=== PATIENT | female | born 1970 | race African-American/Black ===

== ENCOUNTER 2018-03-23 05:57 | Emergency (ER) | payer OTHER ==
[2018-03-23 06:20] VITALS: BMI 40.7
[2018-03-23 06:50] LABS: BASO % 0.4 % (0-2.0); EOS % 2.2 % (0-4.5); HEMATOCRIT 35.3 % (32.4-45.2); HEMOGLOBIN 10.9 GM/dL (10.7-15.3); LYMPH % 55.7 % (8-40); MCH 22.3 pg (25.7-33.7); MCHC 30.9 g/dl (32.0-36.0); MEAN CELL VOLUME 72.2 fl (80-96); MEAN PLT VOLUME 7.8 fl (7.5-11.1); MONO % 9.2 % (3.8-10.2); NEUT % 32.5 % (42.8-82.8); PLATELET COUNT 317 K/MM3 (134-434); RDW 18.8 % (11.6-15.6); WHITE BLOOD COUNT 5.1 K/mm3 (4.0-10.0)
--- NOTE | 2018-03-23 06:56 | PDOC ---
History of Present Illness - General Chief Complaint: Chest Pain Stated Complaint: CHEST PRESSURE Time Seen by Provider: 03/23/18 06:56 - History of Present Illness Initial Comments: 03/23/18 07:22 The patient is a 47 year old female with a history of HTN, Seizures who presents for evaluation of chest tightness. 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 She notes that she has had similar symptoms in the past last of which was several months ago that had all self-resolved. She states that her symptoms have completely resolved here in the ED and she is currently asymptomatic. She states that she took a full dose aspirin prior to presenting to the ED. She otherwise denies fevers, chills, SOB , nausea, vomiting, abdominal pain, lower extremity edema, recent long travel, or changes with urination or bowel movements. Past History - Past Medical History Allergies/Adverse Reactions: Allergies Allergy/AdvReac Type Severity Reaction Status Date / Time No Known Allergies Allergy Verified 03/23/18 06:20 Home Medications: Ambulatory Orders Amlodipine Besylate [Norvasc -] 5 mg PO DAILY 03/23/18 COPD: No HTN: Yes Seizures: Yes - Reproductive History (#): 4 Para: 1 Therapeutic (s) & number: Yes (2) Spontaneous : 0 - Immunization History Td Vaccination: (unknown) Immunization Up to Date: Yes - Suicide/Smoking/Psychosocial Hx Smoking Status: No Smoking History: Never smoked Years of Tobacco Use: 0 Have you smoked in the past 12 months: No Number of Cigarettes Smoked Daily: 0 Cigars Per Day: 0 Information on smoking cessation initiated: No Hx Alcohol Use: No Drug/Substance Use Hx: No Substance Use Type: None Review of Systems - Review of Systems Comments:: 03/23/18 07:25 Constitutional: No fevers, chills, fatigue, malaise HEENT: No Rhinorrhea, nasal congestion, visual changes Cardiovascular: Lightheadedness. Chest Tightness. No syncope, palpitations, Respiratory: No Cough, SOB, Hemoptysis, Gastrointestinal: No Abdominal pain, Nausea, Vomiting, Constipation, Diarrhea, Melena Genitourinary: No Dysuria, Frequency, Urgency, Hesitancy, Hematuria, Flank pain Musculoskeletal: No Myalgia, arthralgia Skin: No rashes, itching, bruising, pallor Neurologic: No Headache, Dizziness, Numbness, Weakness, or Tingling Psychiatric: No Hallucinations. No SI or HI *Physical Exam - Vital Signs Last Vital Signs Temp Pulse Resp BP Pulse Ox 97.7 F 91 H 19 125/83 100 03/23/18 05:58 03/23/18 05:58 03/23/18 05:58 03/23/18 05:58 03/23/18 05:58 - Physical Exam Comments: 03/23/18 07:25 General Appearance: Nourished. No Apparent Distress HEENT: No Pharyngeal Erythema, Tonsillar Exudate, Tonsillar Erythema Neck: No Cervical Lymphadenopathy Respiratory/Chest: Lungs Clear, Normal Breath Sounds. No Crackles, Rales, Rhonchi, Wheezing Cardiovascular: Regular Rhythm, Regular Rate. No Murmur, Gallops, Rubs Gastrointestinal/Abdominal: Normal Bowel Sounds, Soft. No Guarding, Rebound, Tenderness Musculoskeletal: No CVA Tenderness Extremity: Normal Capillary Refill Integumentary: Normal Color, Dry, Warm Neurologic: Fully Oriented, Alert, Normal Mood/Affect, Normal Response, Moderate Sedation - Procedure Monitoring Vital Signs: Procedure Monitoring Vital Signs Temperature 97.7 F 03/23/18 05:58 Pulse Rate 91 H 03/23/18 05:58 Respiratory Rate 19 03/23/18 05:58 Blood Pressure 125/83 03/23/18 05:58 O2 Sat by Pulse Oximetry (%) 100 03/23/18 05:58 Heart Score/ECG Review - History History: Slightly suspicious - Electrocardiogram EKG: Normal - Age Age: 45-65 - Risk Factors Risk Factors Heart Score: Yes Hx Hypercholesterolemia, Yes Hx Obesity Based on the list above the patient has:: 1-2 risk factors - Troponin Troponin: </= normal limit - Score Heart Score - Total: 2 #1 ECG reviewed & interpreted by me at: 07:26 General ECG Interpretation: Sinus Rhythm, Normal Rate, Normal Intervals, No acute ischemic changes ED Treatment Course - LABORATORY CBC & Chemistry Diagram: 03/23/18 06:15 03/23/18 06:15 Medical Decision Making - Medical Decision Making 03/23/18 07:27 The patient is a 47 year old female with a history of HTN, Seizures who presents for evaluation of chest tightness. Differential includes but is not limited to: ACS, Arrhythmia, Vaso-vagal, Infectious, Metabolic Derangement. Given the patient's history and physical exam, we will obtain a cbc, cmp, troponin, ekg, chest plain film to evaluate further. We will continue to monitor and reassess while here in the ED. 03/23/18 10:53 CBC, cmp, troponin are unremarkable. Chest plain film is unremarkable as read by our radiologist. We are comfortable discharging the patient home with cardiology follow up. We discussed the results, plan, and return precautions with the patient who voiced understanding and is agreeable with the plan. *DC/Admit/Observation/Transfer Diagnosis at time of Disposition: Chest tightness or pressure, Near syncope - Discharge Dispostion Disposition: HOME Condition at time of disposition: Stable Decision to Admit order: No - Referrals Referrals: Ze Porter MD [Staff Physician] - - Patient Instructions Printed Discharge Instructions: DI for Atypical Chest Pain Additional Instructions: Please return to the ER if you experience concerning or worsening symptoms including worsening difficulty breathing, weakness, or chest pain. Your lab results were normal here in the ER. Please call to schedule a follow up appointment with your primary care provider and our Drilling Field Operator within 2-3 days to discuss your ER visit and further management of your symptoms. - Post Discharge Activity
--- NOTE | 2018-03-23 07:38 | PDOC ---
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 no family or personal hx PE/DVT no cardiac risk factors compliant with CCB therapy for management of HTN. 03/23/18 08:54 - Physicial Exam PE: 03/23/18 07:38 NAD, well appearing, MMM, nl conjunctiva, anicteric; neck supple. lungs clear, RRR, abdomen soft nontender. MERRILL x4, no focal neuro deficits. No peripheral edema. normal color for ethnicity, WWP. - Medical Decision Making 03/23/18 08:56 See HPI for details DDx chest pain: ACS, PE, dissection, anxiety, acute stress reaction, esophageal spasm, GERD, gastritis, costochondritis, pneumonia, pleurisy, dehydration, electrolyte/metabolic derangements. Considered but clinically doubt based on HPI and PE: PE/dissection or DVT. no s/ s infection, doubt PNA. PERC negative so doubt PE. Vital signs reviewed, wnl. HR downtrended and normalized. NAD Prior notes reviewed, including admissions, discharges and consultations. laboratory results and imaging reviewed, basic labs and lytes wnl, neg trop x2 so doubt ACS/angina. baseline anemia, no bleeding or acute changes. stable H/H per patient when checked CXR unremarkable. no edema/infiltrate or cardiomegaly. EKG normal sinus rhythm, no interval abnormalities, narrow QRS, ST and T wave segments and morphology normal. Nonspecific T wave abnormalities HEART score low risk category, 3 - 1.6% MACE at 30days so 2 trop neg, less likely ACS ED course: uncomplicated, no acute events. stressor precipitants for vasovagal/ near syncope episode. no trauma. no sz activity. no symptoms currently. Dispo: Pt informed of my clinical impression, treatment recommendations and disposition plan. All questions answered to patient's satisfaction and expressed understanding and comfort with this. Reasons for returning to the ED sooner discussed with the patient otherwise, follow up with primary care physician. At the time of discharge, the patient is alert, clinically improved, tolerating po and verbalizes understanding of instructions. Patient does not suffer from an acute life-threatening medical condition at this time she is safe for outpatient follow-up. 03/23/18 08:58 03/23/18 08:59 03/23/18 09:00 Heart Score/ECG Review - History History: Slightly suspicious - Electrocardiogram EKG: Non specific repolarization disturbance - Age Age: 45-65 - Risk Factors Risk Factors Heart Score: Yes Hx Hypertension Based on the list above the patient has:: 1-2 risk factors - Troponin Troponin: </= normal limit - Score Heart Score - Total: 3 - ECG Impressions Normal ECG: No Comment:: 03/23/18 08:59 EKG normal sinus rhythm, no interval abnormalities, narrow QRS, ST and T wave segments and morphology normal. Nonspecific T wave abnormalities
[2018-03-23 08:40] LABS: ALBUMIN 3.6 g/dl (3.4-5.0); ALK PHOS 78 U/L (45-117); ANION GAP 8 MMOL/L (8-16); BILIRUBIN,TOTAL 0.4 mg/dL (0.2-1); BLOOD UREA NITROGEN 12 mg/dL (7-18); CALCIUM 8.7 mg/dL (8.5-10.1); CHLORIDE 103 mmol/L (98-107); CO2 26 mmol/L (21-32); CREATININE 0.9 mg/dL (0.55-1.3); GLUCOSE,RANDOM 101 mg/dL (74-106); POTASSIUM 4.6 mmol/L (3.5-5.1); SGOT/AST 37 U/L (15-37); SGPT/ALT 17 U/L (13-61); SODIUM 137 mmol/L (136-145)
--- NOTE | 2018-03-23 09:59 | EKG ---
Test Reason : Blood Pressure : / mmHG Vent. Rate : 092 BPM Atrial Rate : 092 BPM P-R Int : 130 ms QRS Dur : 084 ms QT Int : 344 ms P-R-T Axes : 000 000 -29 degrees QTc Int : 425 ms NORMAL SINUS RHYTHM LOW VOLTAGE QRS ANTEROLATERAL INFARCT , AGE UNDETERMINED ABNORMAL ECG WHEN COMPARED WITH ECG OF 15-FEB-2013 08:44, ANTEROLATERAL INFARCT IS NOW PRESENT Confirmed by Manoj Curry MD ([id number]) on 03/23/2018 9:59:00 AM Referred By: Confirmed By:Manoj Curry MD
[2018-03-23 10:31] VITALS: TEMP 98.1
[2018-03-23 11:16] VITALS: BP 130/84; PULSE 80
== END 2018-03-23 11:16 | disposition home or self-care (01) ==
LOC: JER 05:57
DX: R07.9 Chest pain, unspecified (principal); R55 Syncope and collapse; I10 Essential (primary) hypertension; G40.909 Epilepsy, unspecified, not intractable, without status epilepticus
CPT/HCPCS: 36415; 71045-TC-FY; 80053; 82550; 82553; 84484; 84703; 85025; 93005; 93010; 99285-25

== ENCOUNTER 2018-09-01 08:17 | Emergency (ER) | payer OTHER ==
[2018-09-01 08:26] VITALS: TEMP 98.2; BMI 36.5
[2018-09-01] MEDS ORDERED: amLODIPine BESYLATE 10 MG TABLET (FP) PO ONE (08:47)
[2018-09-01] MEDS ORDERED: amLODIPine BESYLATE 5 MG TABLET (FP) ONE (08:53)
[2018-09-01 08:57] LABS: BASO % 0.5 % (0-2.0); EOS % 3.7 % (0-4.5); HEMATOCRIT 32.2 % (32.4-45.2); HEMOGLOBIN 10.4 GM/dL (10.7-15.3); LYMPH % 57.1 % (8-40); MCH 22.6 pg (25.7-33.7); MCHC 32.2 g/dl (32.0-36.0); MEAN CELL VOLUME 70.1 fl (80-96); MEAN PLT VOLUME 7.2 fl (7.5-11.1); MONO % 9.4 % (3.8-10.2); NEUT % 29.3 % (42.8-82.8); PLATELET COUNT 299 K/MM3 (134-434); RDW 22.6 % (11.6-15.6); WHITE BLOOD COUNT 4.4 K/mm3 (4.0-10.0)
--- NOTE | 2018-09-01 09:09 | PDOC ---
Documentation entered by Barbara Woods SCRIBE, acting as scribe for Kale Boyle MD. Kale Boyle MD: This documentation has been prepared by the nickibe, Barbara Woods SCRIBE, under my direction and personally reviewed by me in its entirety. I confirm that the documentation accurately reflects all work, treatment, procedures, and medical decision making performed by me. History of Present Illness - General Chief Complaint: Palpitations Stated Complaint: palpitation Time Seen by Provider: 09/01/18 08:25 History Source: Patient Exam Limitations: No Limitations - History of Present Illness Initial Comments: 09/01/18 08:42 The patient is a 47-year-old female, with a past medical history of HTN, seizures, and anxiety, who presents to the ED with palpitations today. The patient states that she was driving a friend to the train station this morning when she suddenly began to experience palpitations that she describes as her "heart racing." She states experienced a similar episode in the past and was diagnosed with pericarditis. Upon arrival to the ED, the patient states that her palpitations are less intense. She denies any chest pain or shortness of breath. She denies any recent illnesses or recent travel. Denies leg swelling or calf pain. She reports taking half a xanax prior to arrival, which she believed helped. The patient has not taken her HTN medication this morning. The patient denies fevers, chills, nausea, vomiting, diarrhea, or abdominal pain. Denies any weakness, dizziness, or changes in strength or sensation. Allergies: NKA Social History: None reported. Surgical History: Hysterectomy (June 2018 at [facility]). Past History - Past Medical History Allergies/Adverse Reactions: Allergies Allergy/AdvReac Type Severity Reaction Status Date / Time No Known Allergies Allergy Verified 09/01/18 08:46 Home Medications: Ambulatory Orders Amlodipine Besylate [Norvasc -] 5 mg PO DAILY 03/23/18 Alprazolam [Xanax] 0.25 mg PO PRN 09/01/18 Anemia: No Asthma: No Cancer: No Cardiac Disorders: Yes (PERICARDITIS) CVA: No COPD: No HTN: Yes Hypercholesterolemia: Yes Seizures: Yes Other medical history: PANIC ATTACK - Surgical History Gastric Stapling: No - Reproductive History (#): 4 Para: 1 Therapeutic (s) & number: Yes (2) Spontaneous : 0 - Immunization History Td Vaccination: (unknown) Immunization Up to Date: Yes - Suicide/Smoking/Psychosocial Hx Smoking Status: No Smoking History: Never smoked Years of Tobacco Use: 0 Have you smoked in the past 12 months: No Number of Cigarettes Smoked Daily: 0 Cigars Per Day: 0 Information on smoking cessation initiated: No Hx Alcohol Use: No Drug/Substance Use Hx: No Substance Use Type: None Review of Systems - Review of Systems Able to Perform ROS?: Yes Comments:: 09/01/18 08:44 GENERAL/CONSTITUTIONAL: No fever or chills. No weakness. HEAD, EYES, EARS, NOSE AND THROAT: No change in vision. No ear pain or discharge. No sore throat. CARDIOVASCULAR: (+)Palpitations. No chest pain, no shortness of breath, no loss of consciousness RESPIRATORY: No cough, wheezing, or hemoptysis. GASTROINTESTINAL: No nausea, vomiting, diarrhea or constipation. GENITOURINARY: No dysuria, frequency, or change in urination. MUSCULOSKELETAL: No joint or muscle swelling or pain. No neck or back pain. SKIN: No rash NEUROLOGIC: No vertigo, no change in strength/sensation. ENDOCRINE: No increased thirst. No abnormal weight change. HEMATOLOGIC/LYMPHATIC: No anemia, easy bleeding, or history of blood clots. ALLERGIC/IMMUNOLOGIC: No hives or skin allergy. *Physical Exam - Vital Signs Last Vital Signs Temp Pulse Resp BP Pulse Ox 98.2 F 73 18 115/73 100 09/01/18 08:23 09/01/18 09:56 09/01/18 09:56 09/01/18 09:56 09/01/18 09:56 - Physical Exam Comments: 09/01/18 08:46 GENERAL: Awake, alert, and fully oriented, in no acute distress. HEAD: No signs of trauma EYES: PERRLA, EOMI, sclera anicteric, conjunctiva clear ENT: Auricles normal inspection, hearing grossly normal, nares patent, oropharynx clear without exudates. Moist mucosa NECK: Nontender, no stepoffs, Normal ROM, supple, no lymphadenopathy, JVD, or masses LUNGS: Breath sounds equal, clear to auscultation bilaterally. No wheezes, and no crackles HEART: Regular rate and rhythm, normal S1 and S2, no murmurs, rubs or gallops ABDOMEN: Soft, nontender, normoactive bowel sounds. No guarding, no rebound. No masses EXTREMITIES: Normal range of motion, no edema. No clubbing or cyanosis. No cords, erythema, or tenderness NEUROLOGICAL: Cranial nerves II through XII intact. 5/5 strength and sensation in all extremities, Normal speech, normal cerebellar function SKIN: Warm, Dry, normal turgor, no rashes or lesions noted. Heart Score/ECG Review - History History: Slightly suspicious - Electrocardiogram EKG: Normal - Age Age: 45-65 - Risk Factors Risk Factors Heart Score: Yes Hx Hypertension Based on the list above the patient has:: 1-2 risk factors - Troponin Troponin: </= normal limit - Score Heart Score - Total: 2 - ECG Impressions Comment:: 09/01/18 09:08 NSR, no MACARENA/STDs, no TWIs, axis wnl, intervals wnl, rate 86 ED Treatment Course - LABORATORY CBC & Chemistry Diagram: 09/01/18 08:30 09/01/18 08:30 - ADDITIONAL ORDERS Additional order review: 09/01/18 08:30 RBC 4.60 MCV 70.1 L MCHC 32.2 RDW 22.6 H MPV 7.2 L Neutrophils % 29.3 L Lymphocytes % 57.1 H Monocytes % 9.4 Eosinophils % 3.7 Basophils % 0.5 - RADIOLOGY Radiology Studies Ordered: Category Date Time Status CHEST X-RAY PORTABLE* [RAD] Stat Radiology 09/01/18 08:34 Completed - Medications Given in the ED: ED Medications Discontinued Medications Generic Name Dose Route Start Last Admin Trade Name Rhysq PRN Reason Stop Dose Admin Amlodipine Besylate 10 mg 09/01/18 08:47 09/01/18 08:54 Norvasc - PO 09/01/18 08:48 10 mg ONCE ONE Administration Medical Decision Making - Medical Decision Making 09/01/18 09:08 47 F with palpitations x 1 day. EKG normal sinus, no evidence of arrhythmia. Pt has h/o pericarditis but no CP/SOB today. No recent illness. EKG without any evidence of pericarditis. PERC 0. - Labs, trop - CXR - home dose norvasc 09/01/18 09:40 Labs notable for mild neutropenia 1.3 Pt without fevers or any other infectious symptoms. Labs otherwise unremarkable Pt reassessed - palpitations have resolved, now asymptomatic. Pt is well appearing, with normal vitals. Clinically stable for DC at this time. I discussed the physical exam findings, ancillary test results and final diagnoses with the patient. I answered all of the patient's questions. The patient was satisfied with the care received and felt comfortable with the discharge plan and treatment plan. The patient agrees to follow up with the primary care physician within 24-72 hours. *DC/Admit/Observation/Transfer Diagnosis at time of Disposition: Palpitations - Discharge Dispostion Disposition: HOME Condition at time of disposition: Stable - Referrals Referrals: Nichole Bahena [Primary Care Provider] - - Patient Instructions Printed Discharge Instructions: DI for Palpitations Additional Instructions: Your labs today showed that your "neutrophil count" was slightly low. This is not an emergency, but you should have it re-checked by your primary doctor within 1 week. If you experience recurrent or worsening palpitations, chest pain, shortness of breath, fevers, or any other concerning symptoms, return to the ER immediately. - Post Discharge Activity Forms/Work/School Notes: Back to Work - Attestations Physician Attestion: 09/01/18 09:42 I, Dr. Kale Boyle MD, attest that this document has been prepared under my direction and personally reviewed by me in its entirety. I further attest, that it accurately reflects all work, treatment, procedures and medical decision -making performed by me.
[2018-09-01 09:30] LABS: ALBUMIN 3.6 g/dl (3.4-5.0); ALK PHOS 74 U/L (45-117); ANION GAP 7 MMOL/L (8-16); BILIRUBIN,TOTAL 0.5 mg/dL (0.2-1); BLOOD UREA NITROGEN 11.6 mg/dL (7-18); CALCIUM 8.8 mg/dL (8.5-10.1); CHLORIDE 103 mmol/L (98-107); CO2 26 mmol/L (21-32); CREATININE 0.9 mg/dL (0.55-1.3); GLUCOSE,RANDOM 104 mg/dL (74-106); POTASSIUM 3.6 mmol/L (3.5-5.1); SGOT/AST 12 U/L (15-37); SGPT/ALT 18 U/L (13-61); SODIUM 136 mmol/L (136-145); TOT PROT 7.9 g/dl (6.4-8.2)
[2018-09-01 09:57] VITALS: BP 115/73; PULSE 73
--- NOTE | 2018-09-01 11:16 | EKG ---
Test Reason : Blood Pressure : / mmHG Vent. Rate : 086 BPM Atrial Rate : 086 BPM P-R Int : 150 ms QRS Dur : 084 ms QT Int : 370 ms P-R-T Axes : 059 027 031 degrees QTc Int : 442 ms NORMAL SINUS RHYTHM NORMAL ECG WHEN COMPARED WITH ECG OF 23-MAR-2018 06:08, CRITERIA FOR ANTEROLATERAL INFARCT ARE NO LONGER PRESENT NONSPECIFIC T WAVE ABNORMALITY, IMPROVED IN INFERIOR LEADS Confirmed by SUMMER NUGENT, MAYANK ([id number]) on 09/01/2018 11:15:41 AM Referred By: Confirmed By:MAYANK WHEELER MD
[2018-09-01 12:05] LABS: ANISOCYTOSIS 1+; MACROCYTOSIS 0; PLATELET ESTIMATE NORMAL
== END 2018-09-01 09:57 | disposition home or self-care (01) ==
LOC: JER 08:17
DX: R00.2 Palpitations (principal); I10 Essential (primary) hypertension
CPT/HCPCS: 36415; 71045-TC-FY; 80053; 82550; 84443; 84484; 85025; 93005; 93010; 99285-25

== ENCOUNTER 2019-04-04 19:37 | Emergency (ER) | payer OTHER ==
[2019-04-04 19:51] VITALS: BP 133/81; PULSE 93; TEMP 97.6; BMI 38.4
--- NOTE | 2019-04-04 19:54 | PDOC ---
Rapid Medical Evaluation Time Seen by Provider: 04/04/19 19:46 Medical Evaluation: Allergies Allergy/AdvReac Type Severity Reaction Status Date / Time No Known Allergies Allergy Verified 09/01/18 08:46 04/04/19 19:46 I performed a brief in-person evaluation of this patient. 48-year-old female with history of HTN, pericarditis, hysterectomy presenting with swelling and pain of RLE. No CP or SOB. Pertinent physical exam findings. RLE with edema, erythema, calf tenderness V/s unremarkable. I have ordered the following: Basic labs Duplex RLE r/o DVT Patient to proceed to ED for further evaluation. Discharge Disposition - Diagnosis Leg swelling - Referrals - Patient Instructions - Post Discharge Activity
[2019-04-04 20:16] LABS: BASO % 0.4 % (0-2.0); EOS % 1.4 % (0-4.5); HEMATOCRIT 37.9 % (32.4-45.2); HEMOGLOBIN 12.8 GM/dL (10.7-15.3); LYMPH % 23.1 % (8-40); MCH 27.3 pg (25.7-33.7); MCHC 33.7 g/dl (32.0-36.0); MEAN PLT VOLUME 6.8 fl (7.5-11.1); MONO % 5.7 % (3.8-10.2); NEUT % 69.4 % (42.8-82.8); PLATELET COUNT 439 K/MM3 (134-434); RBC 4.68 M/mm3 (3.60-5.2); WHITE BLOOD COUNT 7.9 K/mm3 (4.0-10.0)
[2019-04-04 20:32] LABS: INR 0.97 (0.83-1.09); PROTHROMBIN TIME (PATIENT) 11.5 SEC (9.7-13.0)
[2019-04-04 20:36] LABS: ALBUMIN 3.2 g/dl (3.4-5.0); BILIRUBIN,TOTAL 0.3 mg/dL (0.2-1); BLOOD UREA NITROGEN 12.1 mg/dL (7-18); CALCIUM 8.7 mg/dL (8.5-10.1); TOT PROT 9.2 g/dl (6.4-8.2)
--- NOTE | 2019-04-04 21:00 | PDOC ---
History of Present Illness - General Chief Complaint: Edema Stated Complaint: RIGHT LEG/PAIN/SWOLLEN Time Seen by Provider: 04/04/19 19:46 - History of Present Illness Initial Comments: 04/04/19 20:58 48-year-old female with a past medical history of hypertension presents for right lower leg swelling x1 day no systemic symptoms Past History - Past Medical History Allergies/Adverse Reactions: Allergies Allergy/AdvReac Type Severity Reaction Status Date / Time No Known Allergies Allergy Verified 09/01/18 08:46 Home Medications: Ambulatory Orders Amlodipine Besylate [Norvasc -] 5 mg PO DAILY 03/23/18 Alprazolam [Xanax] 0.25 mg PO PRN 09/01/18 Cephalexin [Keflex] 500 mg PO QID #40 capsule 04/04/19 Cephalexin [Keflex] 500 mg PO QID #40 capsule 04/04/19 Sulfamethoxazole/Trimethoprim [Bactrim Ds -] 1 tab PO BID #14 tablet 04/04/19 Sulfamethoxazole/Trimethoprim [Bactrim Ds -] 1 tab PO BID #14 tablet 04/04/19 Anemia: Yes Asthma: No Cancer: No Cardiac Disorders: Yes (PERICARDITIS) CVA: No COPD: No HTN: Yes Hypercholesterolemia: Yes Seizures: Yes - Surgical History Gastric Stapling: No - Reproductive History (#): 4 Para: 1 Therapeutic (s) & number: Yes (2) Spontaneous : 0 - Immunization History Td Vaccination: (unknown) Immunization Up to Date: Yes - Psycho Social/Smoking Cessation Hx Smoking Status: No Smoking History: Never smoked Years of Tobacco Use: 0 Have you smoked in the past 12 months: No Number of Cigarettes Smoked Daily: 0 Cigars Per Day: 0 Hx Alcohol Use: No Drug/Substance Use Hx: No Substance Use Type: None Review of Systems - Review of Systems Constitutional: No: Fever *Physical Exam - Vital Signs Last Vital Signs Temp Pulse Resp BP Pulse Ox 97.6 F 93 H 20 133/81 97 04/04/19 19:46 04/04/19 19:46 04/04/19 19:46 04/04/19 19:46 04/04/19 19:46 - Physical Exam 04/04/19 20:59 There is a large erythemic area on the anterior distal third of the right lower leg. There is warmth and erythema without induration focal fluctuance. There is sensitivity. Thigh and calf are otherwise soft and nontender neurovascular intact no gross sensorimotor deficits. ED Treatment Course - LABORATORY CBC & Chemistry Diagram: 04/04/19 20:00 04/04/19 20:00 - ADDITIONAL ORDERS Additional order review: Laboratory Results 04/04/19 04/04/19 20:00 20:00 PT with INR 11.50 INR 0.97 Sodium 134 L Potassium 4.0 Chloride 102 Carbon Dioxide 27 Anion Gap 5 L BUN 12.1 Creatinine 1.0 Est GFR (CKD-EPI)AfAm 77.69 Est GFR (CKD-EPI)NonAf 67.04 Random Glucose 119 H Calcium 8.7 Total Bilirubin 0.3 AST 10 L ALT 20 Alkaline Phosphatase 103 Total Protein 9.2 H Albumin 3.2 L 04/04/19 20:00 RBC 4.68 MCV 81.0 MCHC 33.7 RDW 15.0 D MPV 6.8 L Neutrophils % 69.4 D Lymphocytes % 23.1 D Monocytes % 5.7 Eosinophils % 1.4 Basophils % 0.4 Medical Decision Making - Medical Decision Making 04/04/19 20:59 Lab work and ultrasound was reviewed. This is a cellulitis. Bactrim and Keflex follow-up with primary care physician Discharge - Discharge Information Problems reviewed: Yes Clinical Impression/Diagnosis: Leg swelling, Cellulitis Condition: Stable Disposition: HOME - Admission No - Additional Discharge Information Prescriptions: Cephalexin [Keflex] 500 mg PO QID #40 capsule Cephalexin [Keflex] 500 mg PO QID #40 capsule Sulfamethoxazole/Trimethoprim [Bactrim Ds -] 1 tab PO BID #14 tablet Sulfamethoxazole/Trimethoprim [Bactrim Ds -] 1 tab PO BID #14 tablet - Follow up/Referral Referrals: Nichole Bahena [Primary Care Provider] - - Patient Discharge Instructions Additional Instructions: Please take the antibiotics as directed. Be sure that the redness does not increase and spread outside the outlined [place] in the emergency room. Return to the emergency room immediately should the redness and pain expand out outside the outlined area. Please start the antibiotics immediately and follow- up with your primary care physician in 1 to 2 days for further evaluation and treatment options. Tylenol as directed for pain. - Post Discharge Activity Work/Back to School Note: Back to Work
== END 2019-04-04 21:58 | disposition home or self-care (01) ==
LOC: JERFT 19:37
DX: L03.115 Cellulitis of right lower limb (principal); I10 Essential (primary) hypertension; E78.00 Pure hypercholesterolemia, unspecified; Z86.69 Personal history of other diseases of the nervous system and sense organs
CPT/HCPCS: 36415; 80053; 85025; 85610; 93971-TC; 99282-25

== ENCOUNTER 2023-10-14 23:17 | Emergency (ER) | payer BC ==
[2023-10-14 23:25] VITALS: BMI 40.2
[2023-10-15] MEDS: LACTATED RINGERS SOLUTION 1000 ML INFUS.BAG IV ONE (00:03)
[2023-10-15 00:06] LABS: BASO % 0.3 % (0-2.0); HEMATOCRIT 38.2 % (32.4-45.2); LYMPH % 39.2 % (8-40); MCH 28.5 pg (25.7-33.7); MCHC 34.1 g/dl (32.0-36.0); MEAN CELL VOLUME 83.4 fl (80-96); MEAN PLT VOLUME 7.9 fl (7.5-11.1); MONO % 8.6 % (3.8-10.2); NEUT % 48.9 % (42.8-82.8); PLATELET COUNT 281 10^3/uL (134-434); RBC 4.58 M/mm3 (3.60-5.2); RDW 13.9 % (11.6-15.6); WHITE BLOOD COUNT 3.5 K/mm3 (4.0-10.0)
[2023-10-15 00:33] LABS: POTASSIUM 5.6 mmol/L (3.5-5.1)
[2023-10-15 00:34] LABS: CALCIUM 8.8 mg/dL (8.5-10.1)
[2023-10-15 00:35] LABS: ALBUMIN 3.5 g/dl (3.4-5.0); MAGNESIUM 2.2 mg/dL (1.8-2.4)
[2023-10-15 00:38] LABS: CREATININE 0.9 mg/dL (0.55-1.3)
[2023-10-15 00:40] LABS: BILIRUBIN,TOTAL 0.4 mg/dL (0.2-1); TOT PROT 7.5 g/dl (6.4-8.2)
[2023-10-15 01:47] LABS: POTASSIUM 4.3 mmol/L (3.5-5.1)
[2023-10-15 01:48] LABS: BLOOD UREA NITROGEN 12.1 mg/dL (7-18); CALCIUM 8.6 mg/dL (8.5-10.1)
[2023-10-15 01:52] LABS: CREATININE 0.9 mg/dL (0.55-1.3)
[2023-10-15 02:18] LABS: INR 0.93 (0.83-1.09); PROTHROMBIN TIME (PATIENT) 10.7 SEC (9.7-13.0)
[2023-10-15 02:21] LABS: ACTIVATED PTT 30.8 SECONDS (25.2-36.5)
[2023-10-15 02:30] VITALS: BP 115/74; PULSE 72; RESP 13; TEMP 97.5
== END 2023-10-15 04:52 | disposition home or self-care (01) ==
LOC: JER 23:17
DX: R42 Dizziness and giddiness (principal)
CPT/HCPCS: 36415; 80048; 80053; 83735; 84443; 84484; 85025; 85610; 85730; 93005; 93010; 99284-25